=== PATIENT | male | born 1990 | race Hispanic/Latino ===

== ENCOUNTER 2019-06-09 10:10 | Emergency (ER) | payer SELFPAY ==
[2019-06-09] MEDS ORDERED: METHYLPREDNISOLONE 125 MG INJ ONE (10:28)
[2019-06-09] MEDS ORDERED: DIPHENHYDRAMINE 50 MG/ML VIAL ONE (10:28)
[2019-06-09] MEDS ORDERED: FAMOTIDINE 20 MG/2 ML VIAL IV ONE (10:29)
[2019-06-09] MEDS ORDERED: NA CHLORIDE 0.9% 1,000 ML ONE (10:29)
--- NOTE | 2019-06-09 11:50 | EDPHYS ---
Physician Documentation [facility] Name: Marco Vaughn Age: 28 yrs Sex: Male : 1990 Arrival Date: 06/09/2019 Time: 10:13 Bed 2 Private MD: ED Physician Saleem Wilson HPI: 06/09 11:36 This 28 yrs old Male presents to ER via Ambulatory with complaints of Allergic rn Reaction. 11:36 The patient presents with cough. Onset: The symptoms/episode began/occurred just prior rn to arrival. 11:45 Associated signs and symptoms: Pertinent positives: cough, mild sob. Possible causes: rn antibiotics, amoxicillin. Severity of symptoms: At their worst the symptoms were mild in the emergency department the symptoms are unchanged. The patient has experienced a previous episode. Reports has had cough/sore throat/congestion/muscle aches, took his family members amoxicillin, was not aware that is a penicillin, and is allergic to penicillin. Reports cough and mild sob. No rash, no swelling. . Historical: - Allergies: 10:18 PENICILLINS; aj1 - Home Meds: 10:18 None [Active]; aj1 - PMHx: 10:18 None; aj1 - PSHx: 10:18 Appendectomy; aj1 - Immunization history:: Flu vaccine is not up to date. - Social history:: Smoking status: Patient uses tobacco products, denies chronic smoking, but will smoke occasionally. - Ebola Screening: : Patient denies travel to an Ebola-affected area in the 21 days before illness onset. - Family history:: not pertinent. - Hospitalizations: : No recent hospitalization is reported. ROS: 11:45 Constitutional: Negative for fever, chills, and weight loss, Eyes: Negative for injury, rn pain, redness, and discharge, ENT: + nasal congestion Neck: Negative for injury, pain, and swelling, Cardiovascular: Negative for chest pain, palpitations, and edema, Respiratory: Negative for wheezing, and pleuritic chest pain, Abdomen/GI: Negative for nausea, vomiting, diarrhea, and constipation, MS/Extremity: Negative for injury and deformity, Skin: Negative for injury, rash, and discoloration, Neuro: Negative for headache, weakness, numbness, tingling, and seizure. Exam: 11:45 Constitutional: This is a well developed, well nourished patient who is awake, alert, rn anxious with hyperventilation Head/Face: Normocephalic, atraumatic. Eyes: Pupils equal round and reactive to light, extra-ocular motions intact. Lids and lashes normal. Conjunctiva and sclera are non-icteric and not injected. Cornea within normal limits. Periorbital areas with no swelling, redness, or edema. ENT: Mild pharyngeal erythema, no exudate, no stridor Neck: Trachea midline, no thyromegaly or masses palpated, and no cervical lymphadenopathy. Supple, full range of motion without nuchal rigidity, or vertebral point tenderness. No Meningismus. Cardiovascular: Tachycardic, regular Respiratory: Lungs have equal breath sounds bilaterally, clear to auscultation. Mild hyperventilation Abdomen/GI: soft, non-tender Skin: Warm, dry with normal turgor. Normal color with no rashes, no lesions, and no evidence of cellulitis. MS/ Extremity: Pulses equal, no cyanosis. Neurovascular intact. Full, normal range of motion. Equal circumference. Neuro: Awake and alert, GCS 15, oriented to person, place, time, and situation. Cranial nerves II-XII grossly intact. Motor strength 5/5 in all extremities. Sensory grossly intact. Cerebellar exam normal. Normal gait. Vital Signs: 10:18 BP 137 / 95; Pulse 108; Resp 20; Temp 97.7; Pulse Ox 97% on R/A; Weight 158.76 kg (R); aj1 Height 5 ft. 6 in. (167.64 cm) (R); 10:47 BP 131 / 92; Pulse 95; Resp 22; Pulse Ox 98% on 2 lpm NC; sv 11:29 BP 131 / 95; Pulse 85; Resp 16; Pulse Ox 96% ; sv 10:18 Body Mass Index 56.49 (158.76 kg, 167.64 cm) aj1 MDM: 10:20 Patient medically screened. rn 11:48 Differential diagnosis: bronchospasm, allergic reaction. Data reviewed: vital signs, rn nurses notes, lab test result(s), and as a result, I will discharge patient. Counseling: I had a detailed discussion with the patient and/or guardian regarding: the historical points, exam findings, and any diagnostic results supporting the discharge/admit diagnosis, lab results, the need for outpatient follow up, to return to the emergency department if symptoms worsen or persist or if there are any questions or concerns that arise at home. Response to treatment: the patient's symptoms have markedly improved after treatment, the patient's symptoms have resolved after treatment, the patient's condition has returned to base line, the patient is now symptom free, and as a result, I will discharge patient. Special discussion: I discussed with the patient/guardian in detail that at this point there is no indication for admission to the hospital. It is understood, however, that if the symptoms persist or worsen the patient needs to return immediately for re-evaluation. ED course: Pt sleeping, asymptomatic, will dc home as allergic reaction to amoxicillin. Strep/flu neg, most likely viral syndrome.. 06/09 10:24 Order name: Flu; Complete Time: 11:35 rn 06/09 10:24 Order name: Strep; Complete Time: 11:35 rn 06/09 11:02 Order name: Throat Culture EDMS 06/09 10:24 Order name: IV Start; Complete Time: 10:41 rn Administered Medications: 10:35 Drug: Pepcid 20 mg Route: IVP; Site: right antecubital; sv 11:03 Follow up: Response: No adverse reaction sv 10:35 Drug: NS 0.9% 1000 ml Route: IV; Rate: 1000 ml; Site: right antecubital; sv 11:30 Follow up: Response: No adverse reaction; IV Status: Completed infusion; IV Intake: sv 1000ml 10:37 Drug: Benadryl 50 mg Route: IVP; Site: right antecubital; sv 11:03 Follow up: Response: No adverse reaction sv 10:39 Drug: SOLU-Medrol 125 mg Route: IVP; Site: right antecubital; sv 11:03 Follow up: Response: No adverse reaction sv Disposition: 06/09/19 11:49 Discharged to Home. Impression: Acute allergic reaction. - Condition is Stable. - Prescriptions for EpiPen 0.3 mg Injection auto- injector - inject 1 pen by INTRAMUSCULAR route one time As needed Inject into the outer portion of the thigh, through clothing if necessary. Indicated in the emergency treatment of allergic reactions; 1 Pack. Prednisone 20 mg Oral Tablet - take 3 tablet by ORAL route once daily for 5 days; 15 tablet. - Medication Reconciliation Form, Thank You Letter, Antibiotic Education, Prescription Opioid Use form. - Follow up: Private Physician; When: As needed; Reason: Recheck today's complaints, Re-evaluation by your physician. - Problem is new. - Symptoms have improved. Signatures: Dispatcher [employer] EDKatty Serna RN RN aj1 Raven Calderon RN RN Saleem Wilson MD MD rn Smirch, JULIENNE Zacarias RN ss Corrections: (The following items were deleted from the chart) 12:22 11:49 06/09/2019 11:49 Discharged to Home. Impression: Acute allergic reaction. ss Condition is Stable. Forms are Medication Reconciliation Form, Thank You Letter, Antibiotic Education, Prescription Opioid Use. Follow up: Private Physician; When: As needed; Reason: Recheck today's complaints, Re-evaluation by your physician. Problem is new. Symptoms have improved. rn
--- NOTE | 2019-06-09 11:50 | ER ---
Nurse's Notes [facility] Name: Marco Vaughn Age: 28 yrs Sex: Male : 1990 Arrival Date: 06/09/2019 Time: 10:13 Bed 2 Private MD: Diagnosis: Acute allergic reaction Presentation: 06/09 10:14 Presenting complaint: Patient states: "Apurva been sick for the past week and my mom told aj1 me take this medicine called amoxicillin and I guess she forgot Im allergic to penicillin. Right now I'm feeling dizzy, and short of breath" Patient reports that he took the medication 30 minutes ago. Transition of care: patient was not received from another setting of care. Onset: The symptoms/episode began/occurred 30 minute(s) ago. Anaphylaxis evaluation, chest pain. Onset of symptoms was June 09, 2019 at 09:45. Risk Assessment: Do you want to hurt yourself or someone else? Patient reports no desire to harm self or others. Initial Sepsis Screen: Does the patient meet any 2 criteria? No. Patient's initial sepsis screen is negative. Does the patient have a suspected source of infection? Yes: Productive cough/pneumonia. Care prior to arrival: None. 10:14 Method Of Arrival: Ambulatory aj1 10:19 Acuity: COCO 2 aj1 Triage Assessment: 10:18 General: Appears in no apparent distress. comfortable, Behavior is calm, cooperative, aj1 appropriate for age. Pain: Complains of pain in chest Pain currently is 4 out of 10 on a pain scale. Neuro: Level of Consciousness is awake, alert, obeys commands, Oriented to person, place, time, situation. Cardiovascular: Patient's skin is warm and dry. Respiratory: Reports shortness of breath Airway is patent Respiratory effort is even, unlabored, Respiratory pattern is regular, symmetrical. Historical: - Allergies: 10:18 PENICILLINS; aj1 - Home Meds: 10:18 None [Active]; aj1 - PMHx: 10:18 None; aj1 - PSHx: 10:18 Appendectomy; aj1 - Immunization history:: Flu vaccine is not up to date. - Social history:: Smoking status: Patient uses tobacco products, denies chronic smoking, but will smoke occasionally. - Ebola Screening: : Patient denies travel to an Ebola-affected area in the 21 days before illness onset. - Family history:: not pertinent. - Hospitalizations: : No recent hospitalization is reported. Screenin:30 Abuse screen: Denies threats or abuse. Denies injuries from another. Nutritional sv screening: No deficits noted. Tuberculosis screening: No symptoms or risk factors identified. Fall Risk None identified. Assessment: 10:30 General: Appears in no apparent distress. uncomfortable, well developed, Behavior is sv calm, cooperative, appropriate for age. Pain: Denies pain. Neuro: Level of Consciousness is awake, alert, obeys commands, Oriented to person, place, time, situation, Moves all extremities. Full function Gait is steady, Speech is normal. Respiratory: Reports cough that is productive, dry, hacking, Airway is patent Respiratory effort is even, unlabored, Respiratory pattern is regular, symmetrical, Breath sounds are clear bilaterally. EENT: Oral mucosa is moist. Throat is reddened. Derm: Skin is pink, warm \\T\\ dry. 11:11 Reassessment: Patient appears in no apparent distress at this time. Patient and/or sv family updated on plan of care and expected duration. Pain level reassessed. Patient is alert, oriented x 3, equal unlabored respirations, skin warm/dry/pink. Patient states symptoms have improved. Vital Signs: 10:18 BP 137 / 95; Pulse 108; Resp 20; Temp 97.7; Pulse Ox 97% on R/A; Weight 158.76 kg (R); aj1 Height 5 ft. 6 in. (167.64 cm) (R); 10:47 BP 131 / 92; Pulse 95; Resp 22; Pulse Ox 98% on 2 lpm NC; sv 11:29 BP 131 / 95; Pulse 85; Resp 16; Pulse Ox 96% ; sv 10:18 Body Mass Index 56.49 (158.76 kg, 167.64 cm) aj1 ED Course: 10:13 Patient arrived in ED. ag5 10:19 Triage completed. aj1 10:19 Arm band placed on Patient placed in an exam room. aj1 10:20 Saleem Wilson MD is Attending Physician. rn 10:22 Raven Calderon RN is Primary Nurse. sv 10:30 Patient has correct armband on for positive identification. Bed in low position. Call sv light in reach. monitoring tech on. Pulse ox on. NIBP on. Door closed. Head of bed elevated. 10:32 Inserted saline lock: 20 gauge in right antecubital area, using aseptic technique. sv Flushed right antecubital with 5 ml normal saline. 11:03 Throat Culture Sent. sv 12:21 No provider procedures requiring assistance completed. IV discontinued, intact, ss bleeding controlled, No redness/swelling at site. Pressure dressing applied. Administered Medications: 10:35 Drug: Pepcid 20 mg Route: IVP; Site: right antecubital; sv 11:03 Follow up: Response: No adverse reaction sv 10:35 Drug: NS 0.9% 1000 ml Route: IV; Rate: 1000 ml; Site: right antecubital; sv 11:30 Follow up: Response: No adverse reaction; IV Status: Completed infusion; IV Intake: sv 1000ml 10:37 Drug: Benadryl 50 mg Route: IVP; Site: right antecubital; sv 11:03 Follow up: Response: No adverse reaction sv 10:39 Drug: SOLU-Medrol 125 mg Route: IVP; Site: right antecubital; sv 11:03 Follow up: Response: No adverse reaction sv Intake: 11:30 IV: 1000ml; Total: 1000ml. sv Outcome: 11:49 Discharge ordered by . rn 12:21 Discharged to home ambulatory. ss 12:21 Condition: good 12:21 Discharge instructions given to patient, Instructed on discharge instructions, follow up and referral plans. medication usage, Demonstrated understanding of instructions, follow-up care, medications, Prescriptions given X 2. 12:22 Patient left the ED. ss Signatures: Katty Copeland RN RN ajRaven Blanton RN RN Saleem Wilson MD MD rn Smirch, Shelby, RN RN ss Gaskin, Ajare ag5
[2019-06-09 12:37] VITALS: TEMP 97.7
[2019-06-10 16:50] VITALS: BP 131/95; O2SAT 96
== END 2019-06-09 12:22 | disposition home or self-care (01) ==
LOC: ER 10:10
DX: R05 Cough (principal); R06.02 Shortness of breath; Z72.0 Tobacco use; Z88.0 Allergy status to penicillin
CPT/HCPCS: 87070; 87081; 87804; 96361; 96374; 96375; 99284; J1200; J2930; J7030